=== PATIENT | female | born 1980 | race Caucasian/White ===

== ENCOUNTER 2017-03-14 21:41 | Emergency (ER) | payer OTHER ==
[~2017-03-14] VITALS: Ht 162.6 cm; Wt 94.7 kg
[2017-03-14 21:45] VITALS: TEMP 36.5; Ht 162.6 cm; Wt 94.7 kg
[2017-03-14] MEDS ORDERED: ONDANSETRON INJ 2 MG/ML 2 ML VIAL IM STA (21:53)
[2017-03-14] MEDS ORDERED: KETOROLAC TROMETHAMINE 60 MG/2 ML VIAL IM STA (21:53)
[2017-03-14] MEDS ORDERED: LORA-741 PO (22:10)
[2017-03-14] MEDS ORDERED: HYDR-3419 PO (22:10)
[2017-03-14] MEDS ORDERED: NRN/600 PO (22:10)
[2017-03-14] MEDS ORDERED: RIZA10TA18 PO (22:10)
--- NOTE | 2017-03-14 22:51 | EMERGENCY ROOM VISIT NOTE ---
History First contact with patient: 21:48 Chief Complaint: HEADACHE Stated Complaint: MIGRAINE History of Present Illness The patient is a 36 year old female who presents to the Emergency Room with complaints of a migraine headache. The patient states that she had a headache earlier today but it got worse over the last 3 hours. She took 2 Maxalt without any relief. The patient states the headache is a 10 out of 10. It is on the right side of her head. She denies any visual changes except for photosensitivity. The patient denies any dizziness. The patient admits to nausea but denies any vomiting. The patient states that this is typical for her migraine headaches. This is not the worst headache of her life. The patient states she does not live locally and then her home ER they normally give her Toradol and Zofran IM with relief of her migraines. Review of Systems 10 system review was performed and was negative unless stated otherwise history of present illness. Past Medical/Surgical History Migraines, tonsillectomy, cholecystectomy, tubal ligation Social History Smoking Status: Current Every Day Smoker Alcohol Use: none Drug Use: none Marital Status: Housing Status: lives with family Occupation Status: unemployed Current/Historical Medications Scheduled Gabapentin (Neurontin), 600 MG PO DAILY Lorazepam (Ativan), 0.5 MG PO DAILY Rizatriptan Benzoate (Maxalt), 10 MG PO UD Scheduled PRN Hydrocodon/Acetaminophen 5MG/300MG (Vicodin (5MG/300MG)), 1 TAB PO Q4H PRN for Pain Physical Exam Vital Signs Date Time Temp Pulse Resp B/P (MAP) Pulse Ox O2 Delivery O2 Flow Rate FiO2 03/14/17 21:45 36.5 67 20 152/91 98 Room Air Physical Exam GENERAL: 36-year-old white female appears lying in a darkened room uncomfortable secondary to pain. MENTAL STATUS: Patient is alert and oriented x3 EYES: PERRLA. EOMs intact.. EARS: Canals clear. TMs without fluid level noted. NECK: Supple, no lymphadenopathy noted. No carotid bruits noted. LUNGS: Clear auscultation without wheezes rales or rhonchi. CARDIAC: Regular rate and rhythm without murmur. Pulses is full and equal throughout. NEURO:Cranial nerves two through 12 intact. Cerebellar function intact with [id number]. Fine motor intact with alternating finger motions. Medical Decision & Procedures Medications Administered Medications (Trade) Dose Ordered Sig/Jared Route Start Time Stop Time Status Last Admin Dose Admin Ketorolac Tromethamine (Toradol Inj) 60 mg NOW STAT IM 03/14/17 21:53 03/14/17 21:54 DC 03/14/17 22:07 60 MG Ondansetron HCl (Zofran Inj) 4 mg NOW STAT IM 03/14/17 21:53 03/14/17 21:54 DC 03/14/17 22:07 4 MG ED Course The patient was evaluated. The patient was given Zofran 4 mg IM and Toradol 60 mg IM. The patient was reevaluated and stated that her headache was slightly better and rated it at an 8 out of 10. She was reevaluated again and stated that her headache was much better. She was discharged home in stable condition. Medical Decision The patient presented with her typical migraine headache symptoms therefore no additional diagnostic imaging was performed. [place] Drug Monitoring Program Search Results: patient reviewed within database Medication Reconcilliation Current Medication List: was personally reviewed by me Blood Pressure Screening Patient's blood pressure: Elevated blood pressure Blood pressure disposition: Elevated BP felt to be situational Impression Primary Impression: Migraine Departure Information Dispostion Home / Self-Care Condition GOOD Referrals Steven Mireles M.D. (PCP) Forms HOME CARE DOCUMENTATION FORM, IMPORTANT VISIT INFORMATION Patient Instructions ED Headache Migraine, [facility] Additional Instructions Continue current migraine medications as prescribed. Return to the ER as needed for severe headache Problem Qualifiers Primary Impression: Migraine Migraine type: unspecified Status migrainosus presence: without status migrainosus Intractability: not intractable Qualified Codes: G43.909 - Migraine, unspecified, not intractable, without status migrainosus
[2017-03-14 22:57] VITALS: BP 115/76; PULSE 58; O2SAT 99
== END 2017-03-14 22:58 | disposition home or self-care (01) ==
LOC: MERGE 21:42 → C.EDB 21:42
DX: G43.909 Migraine, unspecified, not intractable, without status migrainosus (principal); F17.200 Nicotine dependence, unspecified, uncomplicated